=== PATIENT | female | born 1960 | race Caucasian/White ===

== ENCOUNTER 2017-03-18 16:15 | Emergency (ER) | payer MEDICARE, OTHER | END 2017-03-18 17:02 | disposition home or self-care (01) | LOC: ERS 16:15 | DX: J06.9 Acute upper respiratory infection, unspecified (principal); R09.82 Postnasal drip; F31.9 Bipolar disorder, unspecified; F41.9 Anxiety disorder, unspecified; F17.210 Nicotine dependence, cigarettes, uncomplicated; E78.5 Hyperlipidemia, unspecified; M48.00 Spinal stenosis, site unspecified; M54.9 Dorsalgia, unspecified; M81.0 Age-related osteoporosis without current pathological fracture | CPT/HCPCS: 99283 ==

== ENCOUNTER 2017-09-18 13:48 | Emergency (ER) | payer MEDICARE, OTHER | END 2017-09-18 15:58 | disposition left against medical advice (07) | LOC: ERS 13:48 | DX: Z53.21 Procedure and treatment not carried out due to patient leaving prior to being seen by health care provider (principal) ==

== ENCOUNTER 2018-06-30 11:33 | Emergency (ER) | payer MEDICARE, MEDICAID ==
[2018-06-30 11:56] LABS: #Basophils 0.1 thou/uL (0.0-0.2); #Eosinphils 0.3 thou/uL (0.0-0.7); #Lymphocytes 2.4 thou/uL (1.20-3.40); #Monocytes 0.5 thou/uL (0.11-0.59); #Neutrophils 6.9 thou/uL (1.40-6.50); %Basophils 1.2 % (0.0-1.0); %Eosinophils 2.5 % (0.0-10.0); %Lymphocytes 23.2 % (21.0-51.0); %Monocytes 5.1 % (0.0-10.0); %Neutrophils 68.1 % (42.0-75.0); Hemoglobin 12.4 g/dL (12.0-16.0); Mean Corpuscular HGB CONC 33.8 g/dL (32.0-36.0); Mean Corpuscular Hemoglobin 31.5 pg (27.0-31.0); Mean Corpuscular Volume 93.3 fL (78.0-98.0); Mean Platelet Volume 6.2 fL (7.4-10.4); Platelet Count 345 thou/uL (130-400); RBC Distribution Width 12.7 % (11.5-14.5); Red Blood Cell (RBC) Count 3.93 mill/uL (4.20-5.40); White Blood Cell (WBC) Count 10.2 thou/uL (4.8-10.8)
[2018-06-30 12:17] LABS: ALT (SGPT) 41 U/L (8-55); AST (SGOT) 39 U/L (5-34); Albumin 4.3 g/dL (3.5-5.0); Alkaline Phosphatase 125 U/L (40-150); Anion Gap 14 mmol/L (10-20); BUN (Urea Nitrogen) 12 mg/dL (9.8-20.1); Bilirubin, Total 0.4 mg/dL (0.2-1.2); Calc. Creatinine Clearance 0 mL/min (70-130); Calcium 9.7 mg/dL (7.8-10.44); Carbon Dioxide 25 mmol/L (22-29); Chloride 106 mmol/L (98-107); Estimated GFR-MDRD 49; Globulin 3.1 g/dL (2.4-3.5); Glucose 93 mg/dL (70-105); Potassium 4.1 mmol/L (3.5-5.1); Protein, Total 7.4 g/dL (6.0-8.3); Sodium 141 mmol/L (136-145)
--- NOTE | 2018-06-30 13:45 | RAD ---
CHEST AND RIGHT RIBS 5 VIEWS: Date: 06/30/18 HISTORY: Fall this morning with right-sided pain. FINDINGS: Heart size and mediastinum are within normal limits. Lungs are clear of infiltrates. No signs of pneu mothorax. No definite rib fractures are seen. IMPRESSION: Negative right ribs. POS: [facility]
--- NOTE | 2018-06-30 14:59 | CT ---
CT BRAIN PERFORMED WITHOUT CONTRAST ENHANCEMENT: Date: 06/30/18 HISTORY: Head injury. Patient is status post fall. FINDINGS: Ventricular and cisternal system shows some mild prominent. There are no signs of intracerebral hemor rhage or extra-axial fluid collections. Visualized sinuses are clear. The mastoid air cells are poorl y developed. IMPRESSION: No acute intracranial abnormalities. POS: [facility]
== END 2018-06-30 14:14 | disposition home or self-care (01) ==
LOC: ERS 11:33
DX: S00.03XA Contusion of scalp, initial encounter (principal); M79.10 Myalgia, unspecified site; E03.9 Hypothyroidism, unspecified; E78.5 Hyperlipidemia, unspecified; F41.9 Anxiety disorder, unspecified; F32.9 Major depressive disorder, single episode, unspecified; F17.210 Nicotine dependence, cigarettes, uncomplicated; W19.XXXA Unspecified fall, initial encounter
CPT/HCPCS: 36415; 70450; 80053; 85025; 93005

== ENCOUNTER 2018-07-31 13:37 | Emergency (ER) | payer MEDICARE, MEDICAID ==
[2018-07-31] MEDS ORDERED: Ibuprofen 800 MG TAB ONE (14:44)
== END 2018-07-31 15:12 | disposition home or self-care (01) ==
LOC: ERS 13:37
DX: S50.02XA Contusion of left elbow, initial encounter (principal); S70.02XA Contusion of left hip, initial encounter; F41.9 Anxiety disorder, unspecified; F32.9 Major depressive disorder, single episode, unspecified; F17.210 Nicotine dependence, cigarettes, uncomplicated; W19.XXXA Unspecified fall, initial encounter
CPT/HCPCS: 99283

== ENCOUNTER 2018-08-01 14:44 | Emergency (ER) | payer MEDICARE, MEDICAID ==
--- NOTE | 2018-08-01 15:55 | RAD ---
Exam: One view pelvis HISTORY: Fall. Pain. Injury FINDINGS: Sacroiliac joints are patent and symmetric. Sacral alar preserved Intact bony pelvis Contour of both femoral heads are maintained. Symmetric hip joint spaces. IMPRESSION: No posttraumatic change..
--- NOTE | 2018-08-01 15:57 | RAD ---
Exam:2 views right hip HISTORY: Pain. Fall. Injury. COMPARISON: 08/12/2013 FINDINGS: Right hip joint space is preserved. Contour of the femoral head is maintained. No definite fracture. Stable irregularity involving inferior aspect of the right acetabulum. If patient is unable to bear weight, consider CT. IMPRESSION: No definite fracture. If patient is unable to bear weight, consider CT.
== END 2018-08-01 16:42 | disposition home or self-care (01) ==
LOC: ERS 14:44
DX: S70.01XA Contusion of right hip, initial encounter (principal); F41.9 Anxiety disorder, unspecified; F32.9 Major depressive disorder, single episode, unspecified; F17.210 Nicotine dependence, cigarettes, uncomplicated; W17.89XA Other fall from one level to another, initial encounter
CPT/HCPCS: 72170; 93005

== ENCOUNTER 2021-01-12 13:39 | Outpatient (CLI) | payer MEDICARE, OTHER | END 2021-01-12 13:40 | disposition home or self-care (01) | LOC: BICULT 13:39 | PROVIDERS: ATTEND Internal Medicine Nephrology | DX: N18.30 Chronic kidney disease, stage 3 unspecified (principal); R80.9 Proteinuria, unspecified | CPT/HCPCS: 36415; 76770; 80048; 82570; 84156 ==

== ENCOUNTER 2022-09-15 10:08 | Day surgery (SDC) | payer OTHER ==
[2022-09-14 11:51] VITALS: BMI 30.2
[2022-09-15] MEDS ORDERED: Lidocaine 1% PF 5 ML VIAL ONE (11:53)
[2022-09-15] MEDS ORDERED: PROPOFOL 200 MG/20 ML VIAL ONE (11:53)
== END 2022-09-15 13:20 | disposition home or self-care (01) ==
LOC: SDC 10:08
PROVIDERS: ATTEND Internal Medicine Gastroenterology
PROC: 0DBN8ZZ Excision of Sigmoid Colon, Via Natural or Artificial Opening Endoscopic (ICD-10-PCS; principal; 2022-09-15)
DX: D12.5 Benign neoplasm of sigmoid colon (principal); K64.8 Other hemorrhoids; K59.09 Other constipation; F41.9 Anxiety disorder, unspecified; F32.A Depression, unspecified; K21.9 Gastro-esophageal reflux disease without esophagitis; K58.9 Irritable bowel syndrome, unspecified; Q43.8 Other specified congenital malformations of intestine; B37.83 Candidal cheilitis; E07.9 Disorder of thyroid, unspecified; F17.200 Nicotine dependence, unspecified, uncomplicated; Z90.710 Acquired absence of both cervix and uterus; Z79.82 Long term (current) use of aspirin; Z79.899 Other long term (current) drug therapy; Z88.5 Allergy status to narcotic agent; Z98.890 Other specified postprocedural states; Z79.890 Hormone replacement therapy; Z86.010 Personal history of colon polyps
CPT/HCPCS: 88305; J2704

== ENCOUNTER 2022-10-28 14:08 | Inpatient (IN) | payer MEDICARE, OTHER, SELFPAY ==
[2022-10-28 15:09] LABS: #Basophils 0.1 thou/uL (0.0-0.2); #Eosinphils 0.1 thou/uL (0.0-0.7); #Monocytes 0.7 thou/uL (0.11-0.59); #Neutrophils 6.6 thou/uL (1.40-6.50); %Basophils 1.2 % (0.0-1.0); %Eosinophils 1.2 % (0.0-10.0); %Lymphocytes 15.8 % (21.0-51.0); %Monocytes 7.3 % (0.0-10.0); %Neutrophils 74.1 % (42.0-75.0); Hematocrit 36.1 % (36.0-47.0); Hemoglobin 12.8 g/dL (12.0-16.0); Mean Corpuscular HGB CONC 35.5 g/dL (32.0-36.0); Mean Corpuscular Hemoglobin 33.2 pg (27.0-31.0); Mean Corpuscular Volume 93.8 fl (78.0-98.0); Platelet Count 307 10x3/uL (130-400); RBC Distribution Width 12.9 % (11.5-14.5); Red Blood Cell (RBC) Count 3.85 mill/uL (4.20-5.40)
[2022-10-28 15:34] LABS: ALT (SGPT) 30 U/L (8-55); AST (SGOT) 23 U/L (5-34); Albumin 4.4 g/dL (3.5-5.0); Alkaline Phosphatase 90 U/L (40-110); Anion Gap 14 mmol/L (10-20); BUN (Urea Nitrogen) 17 mg/dL (9.8-20.1); Bilirubin, Total 0.8 mg/dL (0.2-1.2); Calc. Creatinine Clearance 0 mL/min (70-130); Calcium 9.9 mg/dL (7.8-10.44); Carbon Dioxide 23 mmol/L (22-29); Chloride 104 mmol/L (98-107); Estimated GFR 58; Globulin 3.1 g/dL (2.4-3.5); Glucose 84 mg/dL (70-105); Potassium 3.5 mmol/L (3.5-5.1); Protein, Total 7.5 g/dL (6.0-8.3); Sodium 137 mmol/L (136-145)
[2022-10-28 15:35] LABS: Acetaminophen Less than 10 mcg/mL (10.0-30.0); Alcohol Less than 10.0 mg/dL (Less than 10); Salicylate Less than 8.0 mg/dL (15.0-30.0)
[2022-10-28 15:37] LABS: Troponin I Less than 0.010 ng/mL (< 0.028)
[2022-10-28 19:10] LABS: Troponin I 0.013 ng/mL (< 0.028)
[2022-10-28] MEDS ORDERED: Cyclobenzaprine 10 MG TAB PO PRN (19:17)
[2022-10-28 19:20] LABS: Hemoglobin A1c 5.2 % (4.0-6.0)
[2022-10-28] MEDS ORDERED: hydrALAZINE 10 MG TAB PO PRN ×2 (19:52→19:57)
[2022-10-28] MEDS ORDERED: Lactated Ringer's 1,000 ML IV SCH (21:45)
[2022-10-28 21:54] LABS: Troponin I Less than 0.010 ng/mL (< 0.028)
[2022-10-28] MEDS: Scopolamine 1.5 mg/72 hour Patch TD SCH (22:28)
[2022-10-28] MEDS: Zolpidem Tartrate 5 MG TAB PO SCH (22:29)
[2022-10-28 23:10] VITALS: BMI 26.2
[2022-10-29] MEDS ORDERED: Meloxicam 15 MG TAB PO SCH ×2 (02:00→09:00)
[2022-10-29] MEDS ORDERED: Acetaminophen 500 MG TAB PO SCH (02:00)
[2022-10-29] MEDS: Lidocaine 4% Patch TD SCH (02:03)
[2022-10-29 04:15] LABS: Amphetamine Not Detected (NotDetected); Barbiturates Screen Not Detected (NotDetected); Benzodiazepine Screen Not Detected (NotDetected); Cocaine Metabolite Screen Not Detected (NotDetected); Methadone Not Detected (NotDetected); Methamphetamine Not Detected (NotDetected); Opiate Screen Not Detected (NotDetected); Oxycodone Screen Not Detected (NotDetected); Phencyclidine (PCP) Not Detected (NotDetected); THC/Cannabinoid Screen Not Detected (NotDetected); Tricyclic Screen Detected (NotDetected)
[2022-10-29] MEDS: Levothyroxine Sodium 50 MCG TAB PO SCH (04:26)
[2022-10-29 04:34] LABS: #Basophils 0.1 thou/uL (0.0-0.2); #Eosinphils 0.1 thou/uL (0.0-0.7); #Monocytes 0.6 thou/uL (0.11-0.59); #Neutrophils 6.1 thou/uL (1.40-6.50); %Basophils 1.2 % (0.0-1.0); %Eosinophils 1.5 % (0.0-10.0); %Lymphocytes 18.6 % (21.0-51.0); %Monocytes 6.8 % (0.0-10.0); %Neutrophils 71.5 % (42.0-75.0); Hematocrit 33.8 % (36.0-47.0); Hemoglobin 11.7 g/dL (12.0-16.0); Mean Corpuscular HGB CONC 34.6 g/dL (32.0-36.0); Mean Corpuscular Hemoglobin 32.6 pg (27.0-31.0); Mean Corpuscular Volume 94.2 fl (78.0-98.0); Platelet Count 272 10x3/uL (130-400); RBC Distribution Width 12.7 % (11.5-14.5); Red Blood Cell (RBC) Count 3.59 mill/uL (4.20-5.40); White Blood Cell (WBC) Count 8.6 10x3/uL (4.8-10.8)
[2022-10-29 04:57] LABS: Anion Gap 10 mmol/L (10-20); BUN (Urea Nitrogen) 15 mg/dL (9.8-20.1); Calc. Creatinine Clearance 58 mL/min (70-130); Calcium 9.6 mg/dL (7.8-10.44); Carbon Dioxide 25 mmol/L (22-29); Chloride 105 mmol/L (98-107); Estimated GFR 69; Glucose 104 mg/dL (70-105); Potassium 3.1 mmol/L (3.5-5.1); Sodium 137 mmol/L (136-145)
[2022-10-29] MEDS ORDERED: Potassium Chloride 20 MEQ in Premix Bag 1 BAG IVPB SCH (08:00)
[2022-10-29] MEDS ORDERED: Losartan 25 MG TAB PO SCH ×2 (09:00→12:00)
[2022-10-29] MEDS: Gemfibrozil 600 MG TAB PO SCH ×2 (09:37→16:37)
[2022-10-29] MEDS: Atorvastatin Calcium 20 MG TAB PO SCH (09:38)
[2022-10-29] MEDS: Glycopyrrolate 1 MG TAB PO SCH ×3 (09:38→20:44)
[2022-10-29] MEDS: Aspirin Chewable 81 MG TAB PO SCH (09:38)
[2022-10-29 10:50] LABS: Bacteria/HPF None Seen HPF (None Seen); Bilirubin Negative (Negative); Blood, Urine Negative (Negative); CAUTI Indications for Culture Dysuria,urgency,freq; Clarity Clear (Clear); Glucose, Urine (Dipstick) Normal (Negative); Ketone, Urine Negative (Negative); Leukocyte Negative Leu/uL (Negative); Nitrite Negative (Negative); Protein, Urine (Dipstick) Negative (Neg-Trace); RBC/HPF 0-3 HPF (0-3); Specific Gravity, Urine 1.015 (1.002-1.036); Squamous Epithelial None Seen HPF (0-3); Urobilinogen Normal mg/dL (Less than 2); WBC/HPF None Seen HPF (0-3)
[2022-10-29 10:52] LABS: Urine Culture Reflex No No
[2022-10-29] MEDS: Acetaminophen 325 MG TAB PO PRN (13:08)
[2022-10-29 14:14] LABS: Anion Gap 14 mmol/L (10-20); BUN (Urea Nitrogen) 14 mg/dL (9.8-20.1); Calc. Creatinine Clearance 62 mL/min (70-130); Calcium 9.9 mg/dL (7.8-10.44); Carbon Dioxide 24 mmol/L (22-29); Chloride 104 mmol/L (98-107); Estimated GFR 74; Glucose 85 mg/dL (70-105); Potassium 3.7 mmol/L (3.5-5.1); Sodium 138 mmol/L (136-145)
[2022-10-29] MEDS: Transdermal Patch Removal TOP SCH (16:38)
[2022-10-29] MEDS: Meloxicam 15 MG TAB PO SCH (20:44)
[2022-10-29] MEDS: Zolpidem Tartrate 5 MG TAB PO SCH (23:47)
[2022-10-30] MEDS: Lidocaine 4% Patch TD SCH (04:15)
[2022-10-30] MEDS: Levothyroxine Sodium 50 MCG TAB PO SCH (05:20)
[2022-10-30 05:25] LABS: #Basophils 0.1 thou/uL (0.0-0.2); #Eosinphils 0.2 thou/uL (0.0-0.7); #Monocytes 0.7 thou/uL (0.11-0.59); #Neutrophils 6.4 thou/uL (1.40-6.50); %Basophils 1.3 % (0.0-1.0); %Eosinophils 2.2 % (0.0-10.0); %Monocytes 7.6 % (0.0-10.0); %Neutrophils 67.3 % (42.0-75.0); Hematocrit 35.8 % (36.0-47.0); Hemoglobin 12.5 g/dL (12.0-16.0); Mean Corpuscular HGB CONC 34.9 g/dL (32.0-36.0); Mean Corpuscular Hemoglobin 32.6 pg (27.0-31.0); Mean Corpuscular Volume 93.5 fl (78.0-98.0); Mean Platelet Volume 8.9 fL (7.4-10.4); Platelet Count 299 10x3/uL (130-400); RBC Distribution Width 12.6 % (11.5-14.5); Red Blood Cell (RBC) Count 3.83 mill/uL (4.20-5.40); White Blood Cell (WBC) Count 9.5 10x3/uL (4.8-10.8)
[2022-10-30 05:49] LABS: Anion Gap 16 mmol/L (10-20); BUN (Urea Nitrogen) 20 mg/dL (9.8-20.1); Calc. Creatinine Clearance 60 mL/min (70-130); Calcium 10.3 mg/dL (7.8-10.44); Carbon Dioxide 25 mmol/L (22-29); Chloride 103 mmol/L (98-107); Estimated GFR 70; Glucose 94 mg/dL (70-105); Potassium 3.7 mmol/L (3.5-5.1); Sodium 140 mmol/L (136-145)
[2022-10-30] MEDS: Glycopyrrolate 1 MG TAB PO SCH (08:12)
[2022-10-30] MEDS: Losartan 25 MG TAB PO SCH (08:12)
[2022-10-30] MEDS: Acetaminophen 325 MG TAB PO PRN ×2 (08:12→14:56)
[2022-10-30] MEDS: Gemfibrozil 600 MG TAB PO SCH ×2 (08:12→14:56)
[2022-10-30] MEDS: Atorvastatin Calcium 20 MG TAB PO SCH (08:13)
[2022-10-30] MEDS: Aspirin Chewable 81 MG TAB PO SCH (08:13)
[2022-10-30] MEDS ORDERED: Diclofenac 1% 100 GM Topical GEL TP PRN (08:46)
[2022-10-30] MEDS ORDERED: Potassium Chloride 20 MEQ in Premix Bag 1 BAG IVPB SCH (09:00)
[2022-10-30] MEDS ORDERED: hydrALAZINE 20 MG/ML VIAL SLOW IVP PRN (10:27)
[2022-10-30] MEDS ORDERED: hydrOXYzine 25 MG TAB PO PRN (14:26)
[2022-10-30] MEDS: Transdermal Patch Removal TOP SCH (14:56)
[2022-10-30 16:06] LABS: Troponin I 0.017 ng/mL (< 0.028)
[2022-10-30] MEDS ORDERED: Lorazepam 1 MG TAB PO SCH (17:00)
[2022-10-30] MEDS: Zolpidem Tartrate 5 MG TAB PO SCH (22:52)
[2022-10-30] MEDS: Meloxicam 15 MG TAB PO SCH (22:52)
[2022-10-31] MEDS: Lidocaine 4% Patch TD SCH (03:06)
[2022-10-31 05:11] LABS: #Basophils 0.2 thou/uL (0.0-0.2); #Eosinphils 0.2 thou/uL (0.0-0.7); #Monocytes 0.7 thou/uL (0.11-0.59); #Neutrophils 5.6 thou/uL (1.40-6.50); %Basophils 1.5 % (0.0-1.0); %Eosinophils 2.4 % (0.0-10.0); %Lymphocytes 30.3 % (21.0-51.0); %Monocytes 7.3 % (0.0-10.0); %Neutrophils 57.9 % (42.0-75.0); Hematocrit 34.7 % (36.0-47.0); Hemoglobin 12.1 g/dL (12.0-16.0); Mean Corpuscular HGB CONC 34.9 g/dL (32.0-36.0); Mean Corpuscular Hemoglobin 32.8 pg (27.0-31.0); Mean Platelet Volume 9.1 fL (7.4-10.4); Platelet Count 311 10x3/uL (130-400); RBC Distribution Width 12.7 % (11.5-14.5); Red Blood Cell (RBC) Count 3.69 mill/uL (4.20-5.40); White Blood Cell (WBC) Count 9.7 10x3/uL (4.8-10.8)
[2022-10-31 05:40] LABS: Anion Gap 13 mmol/L (10-20); BUN (Urea Nitrogen) 27 mg/dL (9.8-20.1); Calc. Creatinine Clearance 49 mL/min (70-130); Calcium 10.2 mg/dL (7.8-10.44); Carbon Dioxide 24 mmol/L (22-29); Chloride 104 mmol/L (98-107); Estimated GFR 55; Glucose 99 mg/dL (70-105); Potassium 3.9 mmol/L (3.5-5.1); Sodium 137 mmol/L (136-145)
[2022-10-31] MEDS: Levothyroxine Sodium 50 MCG TAB PO SCH (08:09)
[2022-10-31] MEDS: Acetaminophen 325 MG TAB PO PRN (08:09)
[2022-10-31] MEDS: Losartan 25 MG TAB PO SCH (09:54)
[2022-10-31] MEDS: Aspirin Chewable 81 MG TAB PO SCH (09:54)
[2022-10-31] MEDS: Atorvastatin Calcium 20 MG TAB PO SCH (09:54)
[2022-10-31] MEDS: Gemfibrozil 600 MG TAB PO SCH ×2 (10:26→17:40)
[2022-10-31] MEDS ORDERED: busPIRone HCl 10 MG TAB PO SCH (12:15)
[2022-10-31] MEDS ORDERED: Metoclopramide HCl 10 MG/2 ML VIAL IVP SCH (12:45)
[2022-10-31] MEDS: Transdermal Patch Removal TOP SCH (14:16)
[2022-10-31] MEDS ORDERED: Non-Formulary Item 1 EACH (Buspirone Hcl [Buspar] 15 MG Tab) PO SCH (15:00)
[2022-10-31 16:21] LABS: Creatinine, Urine Less than 20.00 mg/dL (47-110); Sodium, Urine 59 mmol/L (Not Available)
[2022-10-31] MEDS: busPIRone HCl 10 MG TAB PO SCH ×2 (17:40→22:38)
[2022-10-31] MEDS: Meloxicam 15 MG TAB PO SCH (22:38)
[2022-10-31] MEDS: Zolpidem Tartrate 5 MG TAB PO SCH (22:39)
[2022-10-31] MEDS: Scopolamine 1.5 mg/72 hour Patch TD SCH (22:39)
[2022-11-01] MEDS: Lidocaine 4% Patch TD SCH (03:43)
[2022-11-01] MEDS: Acetaminophen 325 MG TAB PO PRN (04:36)
[2022-11-01] MEDS: Levothyroxine Sodium 50 MCG TAB PO SCH (06:03)
[2022-11-01] MEDS ORDERED: Metoclopramide HCl 10 MG TAB PO SCH (09:00)
[2022-11-01] MEDS ORDERED: Amlodipine 5 MG TAB PO SCH (09:00)
[2022-11-01 09:26] LABS: #Basophils 0.2 thou/uL (0.0-0.2); #Eosinphils 0.4 thou/uL (0.0-0.7); #Monocytes 0.7 thou/uL (0.11-0.59); #Neutrophils 6.8 thou/uL (1.40-6.50); %Basophils 1.6 % (0.0-1.0); %Eosinophils 3.3 % (0.0-10.0); %Lymphocytes 23.5 % (21.0-51.0); %Monocytes 6.8 % (0.0-10.0); %Neutrophils 64.1 % (42.0-75.0); Hematocrit 39.3 % (36.0-47.0); Hemoglobin 13.2 g/dL (12.0-16.0); Mean Corpuscular HGB CONC 33.6 g/dL (32.0-36.0); Mean Corpuscular Hemoglobin 32.4 pg (27.0-31.0); Mean Corpuscular Volume 96.6 fl (78.0-98.0); Mean Platelet Volume 9.2 fL (7.4-10.4); Platelet Count 378 10x3/uL (130-400); RBC Distribution Width 12.8 % (11.5-14.5); Red Blood Cell (RBC) Count 4.07 mill/uL (4.20-5.40); White Blood Cell (WBC) Count 10.7 10x3/uL (4.8-10.8)
[2022-11-01 09:41] LABS: Anion Gap 10 mmol/L (10-20); BUN (Urea Nitrogen) 26 mg/dL (9.8-20.1); Calc. Creatinine Clearance 50 mL/min (70-130); Calcium 10.5 mg/dL (7.8-10.44); Carbon Dioxide 29 mmol/L (22-29); Chloride 104 mmol/L (98-107); Estimated GFR 57; Glucose 75 mg/dL (70-105); Potassium 4.2 mmol/L (3.5-5.1); Sodium 139 mmol/L (136-145)
[2022-11-01] MEDS: Aspirin Chewable 81 MG TAB PO SCH (09:52)
[2022-11-01] MEDS: Atorvastatin Calcium 20 MG TAB PO SCH (09:52)
[2022-11-01] MEDS: busPIRone HCl 10 MG TAB PO SCH ×2 (09:53→15:48)
[2022-11-01] MEDS: Gemfibrozil 600 MG TAB PO SCH (09:53)
[2022-11-01] MEDS ORDERED: DULoxetine 30 MG CAP PO SCH (10:15)
[2022-11-01] MEDS ORDERED: PARoxetine 20 MG TAB PO SCH (10:45)
[2022-11-01] MEDS: Losartan 25 MG TAB PO SCH (11:23)
[2022-11-01 11:38] VITALS: BP 147/82; TEMP 99.2
[2022-11-01] MEDS: Transdermal Patch Removal TOP SCH (15:45)
[2022-11-02] MEDS ORDERED: DULoxetine 30 MG CAP PO SCH (09:00)
[2022-11-02] MEDS ORDERED: PARoxetine 20 MG TAB PO SCH (09:00)
== END 2022-11-01 16:10 | disposition home or self-care (01) | DRG 92 ==
LOC: ERS 14:08 → 2SE 17:22 → OBSVTOIN 10-29 17:44
PROVIDERS: ADMIT Family Medicine; ATTEND Family Medicine
DX: R47.81 Slurred speech (principal); I47.1 Supraventricular tachycardia; R13.10 Dysphagia, unspecified; R25.1 Tremor, unspecified; T50.995A Adverse effect of other drugs, medicaments and biological substances, initial encounter; G43.109 Migraine with aura, not intractable, without status migrainosus; R29.810 Facial weakness; F41.9 Anxiety disorder, unspecified; M79.7 Fibromyalgia; G47.00 Insomnia, unspecified; E03.9 Hypothyroidism, unspecified; E78.5 Hyperlipidemia, unspecified; K21.9 Gastro-esophageal reflux disease without esophagitis; F32.9 Major depressive disorder, single episode, unspecified; F41.1 Generalized anxiety disorder; Z96.652 Presence of left artificial knee joint; F17.210 Nicotine dependence, cigarettes, uncomplicated; I12.9 Hypertensive chronic kidney disease with stage 1 through stage 4 chronic kidney disease, or unspecified chronic kidney disease; N18.30 Chronic kidney disease, stage 3 unspecified; M25.512 Pain in left shoulder; R33.9 Retention of urine, unspecified; Z79.82 Long term (current) use of aspirin; Z79.899 Other long term (current) drug therapy; Z90.710 Acquired absence of both cervix and uterus; Z85.43 Personal history of malignant neoplasm of ovary; Z82.49 Family history of ischemic heart disease and other diseases of the circulatory system; Z79.890 Hormone replacement therapy
CPT/HCPCS: 36415; 51798; 70450; 70551; 71045; 80048; 80053; 80061; 80306; 80307; 81001; 82570; 83036; 83735; 83935; 84300; 84443; 84484; 85025; 85652; 86140; 93005; 93010; 96360; 96361; 96372; 96374; G0378; J0360; J1650; J2765; J3480; J7120